=== PATIENT | male | born 1980 | race Caucasian/White ===

== ENCOUNTER 2017-09-01 22:51 | Inpatient (IN) | payer MEDICAID, OTHER ==
[~2017-09-01] VITALS: Ht 193 cm; Wt 132.5 kg
[~2017-09-01 22:51] MED LIST: ACETAMINOPHEN 500 MG CPLT PO PRN; ALLO300T2 PO; MEDR4PAK PO; NITROGLYCERIN 0.4 MG SL 25 TABS/BTL SL PRN; NORC5TAB PO; SODIUM CHLORIDE 0.9% FLUSH 10 ML FLUSH IV FLUSH PRN
[2017-09-01 23:15] VITALS: BP 156/97; PULSE 86; RESP 20; TEMP 98.8; O2SAT 96
[2017-09-01] MEDS ORDERED: NITROGLYCERIN/DEXTROSE 5% 250 ML for chest pain IV PRN (23:45)
[2017-09-01] MEDS ORDERED: NITROGLYCERIN-D5W 50 MG/250 ML 250 ML IV PRN (23:45)
--- NOTE | 2017-09-01 23:57 | HHI.HP ---
[facility] Primary [facility] Physician No Primary Care Physician Admission Diagnosis Diagnoses: Travel History International Travel<30 Days: No Contact w/Intl Traveler <30 Da: No Traveled to Known Affected Are: No History of Present Illness 37-year-old male presents to the emergency department with acute onset chest pain. The patient was seen in the [facility] emergency department yesterday for back pain for which she was given a Medrol Dosepak and [place]. He states that he went home and was lying down when the pain radiated from his back to his chest. He states the chest pain has remained persistent since yesterday and it feels like a crushing/stabbing pain in his mid sternum that radiates down both arms. The patient endorses previous shortness of breath, now resolved. Chest pain was not relieved by morphine in the emergency department. The patient has no cardiac history and has never had chest pain before. Patient's initial troponin was 0.14, repeat 0.55. Review of Systems Denies fever or chills Denies blurry vision, otorrhea, rhinorrhea Denies sore throat and cough Chest pain, positive shortness of breath No abdominal pain Denies constipation/diarrhea/nausea/vomiting Positive back pain No rashes Past Family Social History Past Medical History Gout Past Surgical History None Reported Medications Reported Meds & Active Scripts Active [place] (Hydrocodone-Acetaminophen) 5-325 mg Tab 1 Tab PO Q6H PRN Medrol Dosepak (Methylprednisolone) 4 Mg Dspk 4 Mg PO DIRECTED Per Pharmacist direction Reported Allopurinol 300 Mg Tab 300 Mg PO DAILY Allergies: Coded Allergies: No Known Allergies (Verified Allergy, Unknown, 09/01/17) Family History Mother with diabetes mellitus. Father with colon cancer. Social History Continues to smoke 2-3 cigarettes per day. Has a [id number] history of smoking. Quit alcohol 7 months ago. Denies illicit drugs. Physical Exam Physical Exam GENERAL: Obese male lying in bed SKIN: No rashes, ecchymoses or lesions. Cool and dry. HEAD: Atraumatic. Normocephalic. No temporal or scalp tenderness. EYES: Pupils equal round and reactive. Extraocular motions intact. No scleral icterus. No injection or drainage. ENT: Nose without bleeding, purulent drainage or septal hematoma. Throat without erythema, tonsillar hypertrophy or exudate. Uvula midline. Airway patent. NECK: Trachea midline. No JVD or lymphadenopathy. Supple, nontender, no meningeal signs. CARDIOVASCULAR: Regular rate and rhythm without murmurs, gallops, or rubs. RESPIRATORY: Clear to auscultation. Breath sounds equal bilaterally. No wheezes , rales, or rhonchi. GASTROINTESTINAL: Abdomen soft, non-tender, nondistended. No hepato-splenomegaly , or palpable masses. No guarding. MUSCULOSKELETAL: Extremities without clubbing, cyanosis, or edema. No joint tenderness, effusion, or edema noted. Middle of the upper drying machine back tender to palpation. NEUROLOGICAL: Awake and alert. Cranial nerves II through XII intact. Motor and sensory grossly within normal limits. Normal speech. Caprini VTE Risk Assessment Caprini VTE Risk Assessment: No/Low Risk (score <= 1) Caprini Risk Assessment Model Point Value = 1 Point Value = 2 Point Value = 3 Point Value = 5 Age 41-60 Minor surgery BMI > 25 kg/m2 Swollen legs Varicose veins or History of unexplained or recurrent spontaneous Oral contraceptives or hormone replacement Sepsis (< 1 month) Serious lung disease, including pneumonia (< 1 month) Abnormal pulmonary function Acute myocardial infarction Congestive heart failure (< 1 month) History of inflammatory bowel disease Medical patient at bed rest Age 61-74 Arthroscopic surgery Major open surgery (> 45 min) Laparoscopic surgery (> 45 min) Malignancy Confined to bed (> 72 hours) Immobilizing plaster cast Central venous access Age >= 75 History of VTE Family history of VTE Factor V Leiden Prothrombin [id number] Lupus anticoagulant Anticardiolipin antibodies Elevated serum homocysteine Heparin-induced thrombocytopenia Other congenital or acquired thrombophilia Stroke (< 1 month) Elective arthroplasty Hip, pelvis, or leg fracture Acute spinal cord injury (< 1 month) Prophylaxis Regimen Total Risk Factor Score Risk Level Prophylaxis Regimen 0-1 Low Early ambulation 2 Moderate Order ONE of the following: *Sequential Compression Device (SCD) *Heparin 5000 units SQ BID 3-4 Higher Order ONE of the following medications: *Heparin 5000 units SQ TID *Enoxaparin/Lovenox 40 mg SQ daily (WT < 150 kg, CrCl > 30 mL/min) *Enoxaparin/Lovenox 30 mg SQ daily (WT < 150 kg, CrCl > 10-29 mL/min) *Enoxaparin/Lovenox 30 mg SQ BID (WT < 150 kg, CrCl > 30 mL/min) AND/OR *Sequential Compression Device (SCD) 5 or more Highest Order ONE of the following medications: *Heparin 5000 units SQ TID (Preferred with Epidurals) *Enoxaparin/Lovenox 40 mg SQ daily (WT < 150 kg, CrCl > 30 mL/min) *Enoxaparin/Lovenox 30 mg SQ daily (WT < 150 kg, CrCl > 10-29 mL/min) *Enoxaparin/Lovenox 30 mg SQ BID (WT < 150 kg, CrCl > 30 mL/min) AND *Sequential Compression Device (SCD) Assessment and Plan Assessment and Plan 37-year-old male with a past medical history significant only for gout presents with a 1 day history of substernal chest pain and elevated troponins. 1. NSTEMI EKG without ST segment elevations or depressions, personally reviewed by me Elevated troponins of 0.14, 0.55 Heparin drip Nitro drip Discussed the case with Dr. Brambila who recommended continuing heparin drip and adding the nitro drip Cardiology consulted, appreciate assistance 2. Gout Continue allopurinol FEN Nothing by mouth after midnight NS 100 cc/hour Electrolytes: Monitor and replete when necessary Heparin drip Physician Certification 2 Midnight Certification Type: Admission for Inpatient Services Order for Inpatient Services The services are ordered in accordance with Medicare regulations or non- Medicare payer requirements, as applicable. In the case of services not specified as inpatient-only, they are appropriately provided as inpatient services in accordance with the 2-midnight benchmark. Estimated LOS (days): 2 2 days is the estimated time the patient will need to remain in the hospital, assuming treatment plan goals are met and no additional complications. Post-Hospital Plan: Not yet determined Katia Harris MD Sep 01, 2017 23:57
[2017-09-02] VITALS (19 sets, daily range): BP systolic 122–158; BP diastolic 74–101; PULSE 74–109; RESP 14–18; TEMP 97.4–99.9; O2SAT 93–98
[2017-09-02] MEDS: MORPHINE SULFATE 4 MG/ML INJ IV PUSH PRN ×2 (00:16→04:47)
[2017-09-02 03:29] LABS: CKMB 110.3 NG/ML (0.5-3.6)
[2017-09-02] MEDS ORDERED: LORazepam 2 MG/ML VIAL IV PUSH ONE (04:00)
[2017-09-02 07:23] LABS: APTT (PATIENT) 28.4 SEC (24.3-30.1)
--- NOTE | 2017-09-02 08:16 | EKG ---
Date Performed: 09/02/2017 Time Performed: 01:37:02 PTAGE: 37 years EKG: Sinus rhythm Anteroseptal infarct - age undetermined Low QRS voltages in precordial leads Abnormal ECG NO PREVIOUS TRACING DOCTOR: Eris Chavarria Interpretating Date/Time 09/02/2017 08:15:15
[2017-09-02] MEDS: SODIUM CHLORIDE 0.9% FLUSH 10 ML FLUSH IV FLUSH SCH ×2 (09:00→21:00)
--- NOTE | 2017-09-02 09:18 | PD.CONS ---
HPI Consult Requested By Primary Care Physician No Primary Care Physician History of Present Illness 37-year-old male smoker presents to the emergency department with acute onset chest pain, consulted to cardiology because of elevated troponin. He reports persistnet the chest pain since yesterday, crushing/stabbing pain in his mid sternum that radiates down both arms associated with shortness of breath, now resolved. Chest pain was not relieved by morphine in the emergency department. The patient has no cardiac history and has never had chest pain before. Review of Systems Consitutional: DENIES: Fatigue, Fever, Chills, Weight gain, Weight loss Eyes: DENIES: Amaurosis Fugax, Change in vision HEENT: DENIES: Lightheadedness, Change in hearing Respiratory: COMPLAINS OF: See HPI Cardiovascular: COMPLAINS OF: See HPI Gastrointestinal: DENIES: Nausea, Vomiting, Change in bowel habits, Reflux, Bloody stools, Melena Genitourinary: DENIES: Urinary incontinence, Difficulty voiding Integumentary: DENIES: Rash Neurologic: DENIES: Tingling or numbness, Memory problems, Poor Balance, Stroke symptoms Musculoskeletal: DENIES: Joint pain, Muscle pain, Limited range of motion, Back pain Psychiatric: DENIES: Anxiety, Depression, Sleep disturbances Hematologic: DENIES: Bruising tendencies, Bleeding tendencies Endocrine: DENIES: Weight gain, Weight loss, Thyroid disease Past Family Social History Allergies: Coded Allergies: No Known Allergies (Verified Allergy, Unknown, 09/01/17) Past Medical History Gout Past Surgical History None Reported Medications Reported Meds & Active Scripts Active [place] (Hydrocodone-Acetaminophen) 5-325 mg Tab 1 Tab PO Q6H PRN Medrol Dosepak (Methylprednisolone) 4 Mg Dspk 4 Mg PO DIRECTED Per Pharmacist direction Reported Allopurinol 300 Mg Tab 300 Mg PO DAILY Active Ordered Medications Current Medications Medications (Trade) Dose Ordered Sig/Reagan Route Start Time Stop Time Status Last Admin (NS Flush) 2 ml BID IV FLUSH 09/02/17 09:00 (NS Flush) 2 ml UNSCH PRN IV FLUSH 09/01/17 21:45 (Tylenol) 500 mg Q4H PRN PO 09/01/17 21:45 (Zyloprim) 300 mg DAILY PO 09/02/17 09:00 (Morphine Inj) 4 mg Q3H PRN IV PUSH 09/02/17 00:00 09/02/17 04:47 Sodium Chloride 1,000 ml @ 100 mls/hr Q10H IV 09/02/17 00:00 09/02/17 00:00 Nitroglycerin/ Dextrose 250 ml @ 1.5 mls/hr TITRATE PRN IV 09/01/17 23:45 09/02/17 01:18 Family History Mother with diabetes mellitus. Father with colon cancer. Social History Continues to smoke 2-3 cigarettes per day. Has a [id number] history of smoking. Quit alcohol 7 months ago. Denies illicit drugs. Physical Exam Vital Signs Vital Signs Date Time Temp Pulse Resp B/P (MAP) Pulse Ox O2 Delivery O2 Flow Rate FiO2 09/02/17 07:00 98.2 75 14 122/84 (97) 93 09/02/17 07:00 75 09/02/17 05:58 84 09/02/17 05:00 86 09/02/17 04:00 Room Air 09/02/17 04:00 98.9 88 18 126/75 (92) 97 09/02/17 04:00 88 09/02/17 03:00 90 09/02/17 02:00 86 09/02/17 01:18 88 154/93 09/02/17 01:00 99 09/02/17 00:00 86 09/01/17 23:15 86 09/01/17 23:15 98.8 86 20 156/97 (116) 96 Physical Exam GENERAL: Well-nourished, well-developed patient. SKIN: Warm and dry. HEAD: Normocephalic. EYES: No scleral icterus. No injection or drainage. NECK: Supple, trachea midline. No JVD or lymphadenopathy. CARDIOVASCULAR: Regular rate and rhythm without murmurs, gallops, or rubs. RESPIRATORY: Breath sounds equal bilaterally. No accessory muscle use. GASTROINTESTINAL: Abdomen soft, non-tender, nondistended. EXTREMITIES: No cyanosis, or edema. NEUROLOGICAL: Awake, alert, and oriented x 3. Non-focal. Laboratory Laboratory Tests Test 09/02/17 02:17 09/02/17 04:16 09/02/17 05:50 Total Creatine Kinase 901 Creatine Kinase MB 110.3 Creatine Kinase MB % 12.2 Troponin I 9.04 Urine Opiates Screen POS Urine Barbiturates Screen NEG Urine Amphetamines Screen NEG Urine Benzodiazepines Screen NEG Urine Cocaine Screen NEG Urine Cannabinoids Screen NEG Activated Partial Thromboplast Time 28.4 Assessment and Plan Problem List: (1) Elevated troponin ICD Codes: R74.8 - Abnormal levels of other serum enzymes Status: Acute Plan: 37 y/o M smoker presenting with chest pain found to have elevated troponin consisten with NSTEMI. EKG sinus rhythm with Q waves in anterior leads. Currently afebrile and hemodynamicalaly stable. Plan ASA, Heparin drip 2DEcho Schedule LHC +/- PCI today Keep NPO Risk benefits of LHC/PCI including but not limited to neurovascular trauma, bleeding, KENYA, stroke, emergent CABG and explain to patient. Mr. Ramírez understands risks and is willing to proceed. (2) Nonspecific chest pain ICD Codes: R07.9 - Chest pain, unspecified Status: Acute (3) Tobacco use disorder ICD Codes: F17.200 - Tobacco use disorder Status: Acute (4) Gout flare ICD Codes: M10.9 - Gout flare Status: Acute Casey Palma MD Sep 02, 2017 09:18
[2017-09-02] MEDS: ALLOPURINOL 300 MG TAB PO SCH (09:38)
[2017-09-02] MEDS: SODIUM CHLOR 0.9% 1000 ML INJ 1,000 ML IV SCH ×3 (10:00→16:52)
--- NOTE | 2017-09-02 12:22 | HHI.PR ---
Subjective Remarks Pt complains of chest pains, /, no nausea or vomiting. feels hungry and would like to be able to eat soon. States that he doesn't know at what time his cardiac cath is. still having back pain. Objective Vitals Vital Signs Date Time Temp Pulse Resp B/P (MAP) Pulse Ox O2 Delivery O2 Flow Rate FiO2 09/02/17 11:00 98.3 76 18 129/82 (98) 96 09/02/17 07:00 98.2 75 14 122/84 (97) 93 09/02/17 07:00 75 09/02/17 05:58 84 09/02/17 05:00 86 09/02/17 04:00 Room Air 09/02/17 04:00 98.9 88 18 126/75 (92) 97 09/02/17 04:00 88 09/02/17 03:00 90 09/02/17 02:00 86 09/02/17 01:18 88 154/93 09/02/17 01:00 99 09/02/17 00:00 86 09/01/17 23:15 86 09/01/17 23:15 98.8 86 20 156/97 (116) 96 I/O 09/01/17 09/01/17 09/01/17 09/02/17 09/02/17 09/02/17 07:00 15:00 23:00 07:00 15:00 23:00 Intake Total 960 ml Output Total 500 ml Balance 460 ml Intake Oral 480 ml IV Total 480 ml Output Urine Total 500 ml # Bowel Movements 0 Objective Remarks GENERAL: Obese male lying in bed EYES: Extraocular motions intact. ENT: Nose without drainage. Airway patent. NECK: Trachea midline. CARDIOVASCULAR: Regular rate and rhythm without murmurs RESPIRATORY: Clear to auscultation. Breath sounds equal bilaterally. No wheezes GASTROINTESTINAL: Abdomen soft, non-tender, nondistended. No guarding. MUSCULOSKELETAL: laying in his right side, able to move his lower extremities. A/P Assessment and Plan 37-year-old male with a past medical history significant only for gout presents with a 1 day history of substernal chest pain and elevated troponins. 1. NSTEMI EKG without ST segment elevations or depressions, personally reviewed by me Elevated troponins of 0.14, 0.55, 9.04 on Heparin drip/Nitro drip Cardiology following, Dr Olmos. Pt scheduled for cardiac cath today 2. Gout Continue allopurinol 3. Back pain CT thoracic and lumbar reviewed. norco and morphine prn. PT eval FEN NPO NS 100 cc/hour Electrolytes: Monitor and replete when necessary Heparin drip Discharge Planning cardiac cath today PT eval for back pain Xiao Liu MD Sep 02, 2017 12:22
[2017-09-02] MEDS ORDERED: ACETAMINOPHEN/HYDROcodone 325 MG/5 MG TAB PO PRN (12:30)
[2017-09-02] MEDS ORDERED: HEPARIN-NS/PF INJ 1,000 ML ONE (12:47)
[2017-09-02] MEDS ORDERED: MIDAZOLAM HCL 2 MG/2 ML VIAL ONE ×5 (12:48→14:44)
[2017-09-02] MEDS ORDERED: VERAPAMIL HCL 5 MG/2 ML VIAL ONE (12:59)
[2017-09-02] MEDS ORDERED: NITROGLYCERIN INJ 5 ML ONE (13:00)
[2017-09-02] MEDS ORDERED: HEPARIN SODIUM - IV 10,000 UNITS/10 ML VIAL ONE (13:00)
[2017-09-02] MEDS ORDERED: SODIUM NITROPRUSSIDE 50 MG/2 ML VIAL ONE (13:50)
[2017-09-02] MEDS ORDERED: TICAGRELOR 90 MG TAB PO ONE ×2 (14:25→15:15)
[2017-09-02] MEDS ORDERED: TIROFIBAN INFUSION INJ 250 ML IV ONE (14:56)
[2017-09-02] MEDS ORDERED: SODIUM CHLOR 0.9% 1000 ML INJ 1,000 ML IV SCH (15:03)
[2017-09-02] MEDS ORDERED: MISC INFORMATION XX ONE (15:15)
[2017-09-02] MEDS ORDERED: SODIUM CHLORIDE 0.9% FLUSH 10 ML FLUSH IV FLUSH PRN (15:15)
--- NOTE | 2017-09-02 15:22 | CATHPROC ---
[facility] HIS Report Study Information Study Number Admission Scheduled Start Study Start [id number] Sep 01 2017 10:53PM 09/02/2017 Sep 02 2017 12:35PM [place] [facility] Cardiac Catheterization Admit Source Facility Department Other [facility] - Insurance Customer Service Specialist Physician and Clinical Staff Initial MD Palma, Casey Cellular Biologist Myles Dumont,REMBERTO Recorder Yusef Leahy RCIS(BS) Scrub Nita Gan,RT(R) Procedures Performed Procedure Location (Site) Vessel Name Coronary Angiograms LCA Left Coronary Coronary Angiograms RCA Right Coronary Drug Eluting Inflatio LAD Mid Left Coronary Drug Eluting Inflatio LAD Prox Left Coronary L Heart Cath LV Gram-hand inj. LV LV Ventricle PTCA LAD Mid Left Coronary PTCA LAD Prox Left Coronary Wire insertion Radial (right) Radial Art. Equipment Time Fur Buyer Description Size Mfg Part Number Used/Scraped COPILOT VALVE, BLEEDBACK [id number] 13:16 [employer] Used CONTROL *[id number] 13:28 [employer] WIRE, DOC EXTENSION 145CM 145CM 72428 *[id number] Used TRANSDUCER, TRUWAVE [id number] 12:53 WALKER POE * Used W/STOCKCOCK *[id number] 534-518T *[id number] 534-521T *[id number] 12:53 Touch-Writer PACK, CCL CUSTOM * Used *[id number] 12:53 Touch-Writer SUPPORT, ARTERIAL ADULT 27808 *[id number] Used BALLOON, 1.25 X 6MM SPRINTER [id number] 13:28 MEDTRONIC 6MM Used LEGEND OTW *[id number] 13:27 [employer] BALLOON, 2.0 X 15MM EUPHORA 15MM Used *[id number] 13:48 [employer] BALLOON, 3.0 X 20MM EUPHORA 20MM Used *[id number] BALLOON, 4.0 X 20MM NC [id number] 14:04 MEDTRONIC 20MM Used EUPHORA *[id number] EXPORTAP 13:36 [employer]TR[employer]IC CATHETER, EXPORT ASPIRATON Used *[id number] EXPORTAP 14:12 MEDTRONIC CATHETER, EXPORT ASPIRATON Used *[id number] EXPORTAP 14:27 MEDTR[employer]IC CATHETER, EXPORT ASPIRATON Used *[id number] 13:56 MEDTR[employer]IC STENT, 3.5 26MM JESSICA 3.5 26MM [id number] Used 13:59 MEDTRONIC STENT, 3.5 38MM JESSICA 3.5 38MM [id number] Used 14:02 MEDTRONIC STENT, 3.5 38MM JESSICA 3.5 38MM [id number] Used [id number] 13:15 [employer]IC/AVE EBU 3.5 Z2 GUIDE CATHETER FR 6 Used *5623013 [id number] 13:44 [place]berry 30 REUBEN INDEFLATOR Used *[id number] BAND, RADIAL COMPRESSION TR [id number] 14:48 [employer] 29CM Used LARGE 29 *[id number] [id number] 12:53 [employer] WIRE, 3MMJ .035 180CM 180CM Used *[id number] [id number] 12:53 NAMIC MANIFOLD, 4 PORT * Used *9174125 12:53 [employer] OMNIPAQUE, 350 MG, 150ML 150ML [id number] Used CATHETER, FR4 SPIROFLEX [id number] 14:36 [employer] FR 4 Used ANGIOJET RX *9331733 [id number] 12:53 [facility] BLANKET,WARM AIR CCL * Used *[id number] SHEATH, FR6 TRANSRADIAL RM*[id number] 12:53 [employer] FR 6 Used SLENDER 10CM *[id number] WIRE, RUNTHROUGH NS FLOPPY 25-1011 13:16 [employer] 180CM Used .014 180CM *[id number] WIRE, RUNTHROUGH NS FLOPPY 25-1011 14:08 [employer] 180CM Used .014 180CM *[id number] PRONTO EXTRACTION CATHETER 14:15 VASCULAR [employer]UTIONS * 5003 *[id number] Used V3 Equipment Model, Serial, Lot Number and Expiration Data Description Model Number Serial Number Lot Number Expiration Date BALLOON, 4.0 X 20MM NE [id number] 09-06-2018 EUPHORA CATHETER, EXPORT ASPIRATON [id number] 01-22-2019 CATHETER, EXPORT ASPIRATON [id number] 05-24-2019 CATHETER, FR4 SPIROFLEX [id number] 01-25-2019 ANGIOJET RX History: Allergies Allergy Reaction No Known Allergies History: Risk Factors Family History of Hypertension Dyslipidemia Previous NH Previous Heart Failure Premature CAD No No No No No Prior Valve Prior PCI Prior CABG Surgery No No No Cerebrovascular Peripheral Artery Chronic Lung On Dialysis Diabetes Disease Disease Disease No No No No No History: Symptoms/Diagnosis Selection Items Angina-unstable History: Stress Tests Stress or Imaging Studies Performed No History: Other Current Smoker Method Quit Packs a Day Years Used Pack Years No Cigarettes 2 Years Ago 1 10 10 Labs Hgb (g/dl) Hct (%) WBC (l/cumm) Platelets (thousands) 11.60-17.00 35.00-51.00 4.00-11.00 150.00-450.00 15.9 46.5 17.8 312 Glucose (mg/dl) BUN (mg/dl) Creatinine (mg/dl) BUN:Creatinine (1:x) 74.00-106.00 7.00-18.00 0.50-1.30 10.00-20.00 198 20 1.2 16.7 Na (meq/l) K (meq/l) 136.00-145.00 3.50-5.10 138 4.3 INR (PTT:PT) 0.90-1.10 1 Troponin I (ng/ml) CPK-MB (ng/ML) 0.02-0.05 0.50-3.60 9.04 Not Drawn Medication Medication Total Dose (Bolus/Oral) Medication Total Dosage/Unit 1% XYLOCAINE 20 mL AGGRASTAT BOLUS 66.8 mL BRILINTA 180 mg FENTANYL 225 mcg HEPARIN 7000 units RADIAL COCKTAIL 5 mL (Bolus) VERSED 9 mg Medications (Bolus/Oral) Medication Time Given Dosage/Unit Administered By Reason VERSED 09/02/2017 1:04:48 PM 1 mg Nickolas-Casey Leroy Patient arrived on 1 mg VERSED given by Casey Palma in Left Antecubital via Peripheral IV. Orde red by Casey Palma. FENTANYL 09/02/2017 1:04:49 PM 50 mcg Myles Dumont 50 mcg FENTANYL given in lab by Myles Dumont, RN in Left Antecubital via Peripheral IV. Ordered by Casey Palma. 1% XYLOCAINE 09/02/2017 1:05:37 PM 20 mL Casey Palma 20 mL 1% XYLOCAINE given in lab by Casey Palma in Right Radial via Subcutaneous. Ordered by Casey Arboleda. Ntg 200mcg Verapamil 2.5mg Heparin RADIAL COCKTAIL 09/02/2017 1:06:15 PM 5 mL (Bolus) Casey Palma 2500U 5 mL (Bolus) RADIAL COCKTAIL given in lab by Casey Palma in Right Radial via Radial. Using [Lupe ution Name]. Ordered by Casey Palma. Reason: Ntg 200mcg Verapamil 2.5mg Heparin 2500U. HEPARIN 09/02/2017 1:17:22 PM 5000 units Casey Palma 5000 units HEPARIN given in lab by Casey Palma in Left Antecubital via Peripheral IV. Ordered b y Casey Palma. VERSED 09/02/2017 1:21:36 PM 1 mg Myles Dumont 1 mg VERSED given in lab by Myles Dumont RN in Left Antecubital via Peripheral IV. Ordered by Casey Espino. FENTANYL 09/02/2017 1:21:37 PM 25 mcg Myles Dumont 25 mcg FENTANYL given in lab by Myles Dumont RN in Left Antecubital via Peripheral IV. Ordered by Casey Palma. VERSED 09/02/2017 1:31:11 PM 1 mg Myles Dumont 1 mg VERSED given in lab by Mylse Dumont RN in Left Antecubital via Peripheral IV. Ordered by Casey Espino. VERSED 09/02/2017 1:48:00 PM 1 mg Myles Dumont 1 mg VERSED given in lab by Myles Dumont RN in Left Antecubital via Peripheral IV. Ordered by Casey Espino. HEPARIN 09/02/2017 2:06:00 PM 2000 units Myles Dumont 2000 units HEPARIN given in lab by Myles Dumont RN in Left Antecubital via Peripheral IV. Ordered by Casey Palma. BRILINTA 09/02/2017 2:10:00 PM 180 mg Myles Dumont 180 mg BRILINTA given in lab by Myles Dumont RN via Oral. Ordered by Casey Palma. FENTANYL 09/02/2017 2:10:01 PM 50 mcg Ferlitto, Myles 50 mcg FENTANYL given in lab by Myles Dumont RN in Left Antecubital via Peripheral IV. Ordered by Casey Palma. VERSED 09/02/2017 2:10:18 PM 1 mg Ferlitto, Myles 1 mg VERSED given in lab by Myles Dumont RN in Left Antecubital via Peripheral IV. Ordered by Casey Espino. VERSED 09/02/2017 2:15:49 PM 1 mg Ferlitto, Myles 1 mg VERSED given in lab by Myles Dumont RN in Left Antecubital via Peripheral IV. Ordered by Casey Espino. VERSED 09/02/2017 2:22:12 PM 1 mg Ferlitto, Myles 1 mg VERSED given in lab by Myles Dumont RN in Left Antecubital via Peripheral IV. Ordered by Casey Espino. FENTANYL 09/02/2017 2:22:17 PM 50 mcg Ferlitto, Myles 50 mcg FENTANYL given in lab by Myles Dumont RN in Left Antecubital via Peripheral IV. Ordered by Casey Palma. VERSED 09/02/2017 2:45:31 PM 2 mg Ferlitto, Myles 2 mg VERSED given in lab by Myles Dumont RN in Left Antecubital via Peripheral IV. Ordered by Casey Espino. FENTANYL 09/02/2017 2:45:35 PM 25 mcg FerlittoMyles 25 mcg FENTANYL given in lab by Myles Dumont RN in Left Antecubital via Peripheral IV. Ordered by Casey Palma. FENTANYL 09/02/2017 2:51:00 PM 25 mcg Ferdeondreo, Myles 25 mcg FENTANYL given in lab by Myles Dumont RN in Left Antecubital via Peripheral IV. Ordered by Casey Palma. AGGRASTAT BOLUS 09/02/2017 2:59:00 PM 66.8 mL Myles Dumont 66.8 mL AGGRASTAT BOLUS given in lab by Ferlitto, Myles, RN in Left Antecubital via Peripheral IV. Ord ered by Casey Palma. Medication (Drip) Medication Time Given Dosage/Unit Concentration/Unit Diluent (ml) Solution AGGRASTAT DRIP 09/02/2017 2:59:00 PM 0.15 mcg/kg/min 12.5 mg 250 NaCl .9 0.15 mcg/kg/min AGGRASTAT DRIP given in lab by Myles Dumont RN in Left Antecubital via Peripheral IV. Pump/Drip Flow = 24.03 ml/hr using NaCl .9 with a concentration of 12.5 mg in 250 ml. Ordered by Casey Palma. IV Solutions 09/02/2017 12:44:44 PM 50 mL (IV) NaCl .9 Patient arrived on IV Solutions via Peripheral IV. Pump/Drip Flow using NaCl .9. NIPRIDE 09/02/2017 1:53:53 PM 50 mcg 50 mcg NIPRIDE given in lab by Casey Palma via Intra-coronary. Ordered by Casey Palma. NIPRIDE 09/02/2017 2:00:05 PM 50 mcg 50 mcg NIPRIDE given in lab by Casey Palma via Intra-coronary. Ordered by Casey Palma. NIPRIDE 09/02/2017 2:05:52 PM 50 mcg 50 mcg NIPRIDE given in lab by Casey Palma via Intra-coronary. Ordered by Casey Palma. Initial Case Assessment Cardiovascular HR Rhythm NIBP Chest Pain 72 SR 140/88 0 Edema Present Skin color Skin None Normal Warm Dry Circulatory - Right Pulses Dorsalis Pedis Femoral Radial 3 3 3 Scale (0,1,2,3,4,d) Circulatory - Left Pulses Dorsalis Pedis Femoral Radial 3 3 3 Scale (0,1,2,3,4,d) Circulatory - Lower Extremities Color Lower Right Color Lower Left Normal Normal Neurological State Oriented to time-place- Alert Moves all extremities person Respiration - General Respiration Rate SpO2 (%) (B/min) 19 96 Final Case Assessment Cardiovascular HR Rhythm NIBP Chest Pain 72 SR 140/88 0 Edema Present Skin color Skin None Normal Warm Dry Circulatory - Right Pulses Dorsalis Pedis Femoral Radial 3 3 3 Scale (0,1,2,3,4,d) Circulatory - Left Pulses Dorsalis Pedis Femoral Radial 3 3 3 Scale (0,1,2,3,4,d) Circulatory - Lower Extremities Color Lower Right Color Lower Left Normal Normal Neurological State Oriented to time-place- Alert Moves all extremities person Respiration - General Respiration Rate SpO2 (%) (B/min) 19 96 Chronological Log Time Study Chronological Log 12:35:13 Patient arrived via Bed. 12:35:14 Patient Name, D.O.B, / Armband Verified By R.N. 12:35:20 Consent signed by the physician and the patient and verified by the Insurance Customer Service Specialist staff. 12:40:04 Verbal Stimulation=2 Physical Stimulation=2 Airway=2 Respiration=2 TOTAL=8. (0=absent, 1=li mited, 2=present) Vitals capture started with the following parameters, Patient=Adult, Interval=5 min, Initial Pr agxkpv=969 mmHg, 12:40:52 Deflation Rate=5 mmHg, Cuff placed on Right Arm 12:41:54 HR=69 bpm, NJAL=389/88 mmhg, Resp=13 B/min, Pain=0, Willy=10, Gann=2 12:44:16 Allens test performed on the left radial and ulnar artery. 12:44:22 Patient has been NPO for More than 6Hrs. 12:44:29 A # 20 IV was noted in the Antecubital (left). Grade = 0 12:44:44 Patient arrived on IV Solutions via Peripheral IV. Pump/Drip Flow using NaCl .9. 12:45:07 History and physical on the chart or being dictated. Assessment: Initial Case, HR=72 BPM, Rhythm=SR, ESAA=603/88 mmhg, Chest Pain=0, Edema=None, Col or=Normal, Skin = Warm, Dry Right Pulses: Ozzy Ped=3, Femoral=3, Radial=3 Left Pulses: Ozzy Ped=3, Femoral=3, Radial=3 12:45:12 Lower Right Extremities: Color=Normal Lower Left Extremities: Color=Normal Neurological: State=Alert, Ox3, MAC Respiration: Resp=19 B/min, SpO2=96 % 12:46:51 HR=59 bpm, BFON=375/89 mmhg, SpO2=93.0 %, Resp=9 B/min, Pain=0, Willy=10, Gann=2 12:51:19 HR=83 bpm, KPTL=846/95 mmhg, SpO2=94 %, Resp=14 B/min, Pain=0, Willy=10, Gann=2 12:54:50 Right Radial and groin(s) prepped with 2% chlorhexidine, and draped after a 3 min. waiting time. 12:55:00 MD paged 12:55:12 Pressure channel 1 zeroed. 12:55:40 Reference ECG taken 12:56:23 HR=46 bpm, PYMC=848/93 mmhg, Resp=15 B/min, Pain=0, Willy=10, Gann=2 13:01:22 HR=0 bpm, EKFU=683/96 mmhg, SpO2=96.0 %, Resp=8 B/min, Pain=0, Willy=10, Gann=2 13:04:43 MD arrived. Time Out. Correct patient, correct procedure, correct physician, power injector loaded, or not loaded with contrast with 13:04:47 surgical team present. Time Out Concurred by MD and individual staff in procedure. 13:04:48 Case Start Patient arrived on 1 mg VERSED given by Casey Palma in Left Antecubital via Peripheral IV . Ordered by Randy 13:04:48 Casey Leroy. 13:04:49 50 mcg FENTANYL given in lab by Myles Dumont RN in Left Antecubital via Peripheral IV. O rdered by Casey Palma. 20 mL 1% XYLOCAINE given in lab by Casey Palma in Right Radial via Subcutaneous. Ordered by Minerva 13:05:37 Casey. 13:05:41 Access site was RIGHT Radial Artery. A SHEATH, FR6 TRANSRADIAL SLENDER 10CM FR 6 was advanced into the Radial (right) using the Perc utaneous 13:05:52 technique. 5 mL (Bolus) RADIAL COCKTAIL given in lab by Casey Palma in Right Radial via Radial. Usin g [Solution Name]. 13:06:15 Ordered by Casey Palma. Reason: Ntg 200mcg Verapamil 2.5mg Heparin 2500U. 13:06:25 HR=0 bpm, QQJG=205/89 mmhg, Resp=19 B/min, Pain=0, Willy=10, Gann=2 A JR 4.0 INFINITI CATHETER FR 5 was advanced over a wire. OMNIPAQUE, 350 MG, 150ML 150ML was us ed for 13:06:25 injections. Recorded Pressure: LV, HR=89, Condition=Condition 1 13:07:42 (Left Ventricle) LV 114/11/24 Recorded Pressure: LV, VZ=032, Condition=Condition 1 13:08:09 (Left Ventricle) LV 107/19/34 13:09:01 The LV was manually injected with 8 cc's and visualized. OMNIPAQUE, 350 MG, 150ML 150ML use d. Recorded Pressure: LV, Ao, HR=98, Condition=Condition 1 13:09:09 (Left Ventricle) LV 96/4/11, (Aorta) Ao 113/76/95 13:11:26 HR=12 bpm, MHZG=875/94 mmhg, Resp=21 B/min, Pain=0, Willy=10, Gann=2 13:12:34 The RCA was injected and visualized at various angles. OMNIPAQUE, 350 MG, 150ML 150ML used . After removing the current catheter a JL 3.5 INFINITI CATHETER FR 5 was advanced over a WIRE, 3 MMJ .035 180CM 13:12:42 180CM. Recorded Pressure: Ao, HR=91, Condition=Condition 1 13:14:14 (Aorta) Ao 111/83/97 13:14:31 The LCA was injected and visualized at various angles. OMNIPAQUE, 350 MG, 150ML 150ML used . 13:16:25 HR=5 bpm, QHPT=101/92 mmhg, Resp=11 B/min, Pain=0, Willy=10, Gann=2 5000 units HEPARIN given in lab by Casey Palma in Left Antecubital via Peripheral IV. Ord ered by Minerva, 13:17:22 Casey. After removing the current catheter a EBU 3.5 Z2 GUIDE CATHETER FR 6 was advanced over a WIRE, 3MMJ .035 13:17:35 180CM 180CM. 13:19:46 Ventricular Tachycardia noted. 13:19:57 Patient defibrillated at 260 joules. The ECG rhythm was noted as VT. 13:21:36 1 mg VERSED given in lab by Myles Dumont, REMBERTO in Left Antecubital via Peripheral IV. Order ed by Casey Palma. 13:21:37 25 mcg FENTANYL given in lab by Myles Dumont, REMBERTO in Left Antecubital via Peripheral IV. O rdered by Casey Palma. 13:21:59 HR=32 bpm, XPHC=984/96 mmhg, SpO2=95.0 %, Resp=15 B/min, Pain=0, Willy=10, Gann=2 13:24:47 A WIRE, RUNTHROUGH NS FLOPPY .014 180CM 180CM was inserted via Radial (right). 13:24:53 Interventional wire has crossed the lesion A BALLOON, 1.25 X 6MM SPRINTER LEGEND OTW 6MM was inserted over WIRE, RUNTHROUGH NS FLOPPY .014 13:25:37 180CM 180CM via the Radial (right). 13:26:23 HR=38 bpm, YFBR=279/95 mmhg, Resp=16 B/min, Pain=0, Willy=10, Gann=2 13:29:52 Wire removed 13:31:11 1 mg VERSED given in lab by Myles Dumont, REMBERTO in Left Antecubital via Peripheral IV. Order ed by Casey Palma. 13:31:28 HR=0 bpm, UBLW=092/96 mmhg, SpO2=94.0 %, Resp=13 B/min, Pain=0, Willy=10, Gann=2 13:32:23 Reference ECG taken Recorded Pressure: Ao, HR=82, Condition=Condition 1 13:33:46 (Aorta) Ao 99/75/87 13:36:23 HR=1 bpm, WKUI=083/96 mmhg, SpO2=95.0 %, Resp=16 B/min, Pain=0, Willy=10, Gann=2 13:36:45 Balloon Removed. 13:37:11 Aspiration catheter inserted A CATHETER, EXPORT ASPIRATON was advanced over a wire. OMNIPAQUE, 350 MG, 150ML 150ML was used for 13:37:50 injections. 13:40:48 Aspiration in progress 13:41:26 HR=0 bpm, DTRN=307/96 mmhg, Resp=16 B/min, Pain=0, Willy=10, Gann=2 13:43:23 Catheter was removed A BALLOON, 2.0 X 15MM EUPHORA 15MM was inserted over WIRE, RUNTHROUGH NS FLOPPY .014 180CM 180C M via 13:43:40 the Radial (right). A BALLOON, 2.0 X 15MM EUPHORA 15MM over a WIRE, RUNTHROUGH NS FLOPPY .014 180CM 180CM in the LA D Mid 13:43:53 was inflated using a 30 REUBEN INDEFLATOR at 10 reuben for 14 sec. A BALLOON, 2.0 X 15MM EUPHORA 15MM over a WIRE, RUNTHROUGH NS FLOPPY .014 180CM 180CM in the LA D Mid 13:45:10 was inflated using a 30 REUBEN INDEFLATOR at 10 reuben for 10 sec. A BALLOON, 2.0 X 15MM EUPHORA 15MM over a WIRE, RUNTHROUGH NS FLOPPY .014 180CM 180CM in the LA D Mid 13:45:24 was inflated using a 30 REUBEN INDEFLATOR at 10 reuben for 10 sec. 13:46:27 HR=80 bpm, YWMB=111/93 mmhg, Resp=17 B/min, Pain=0, Willy=10, Gann=2 A BALLOON, 2.0 X 15MM EUPHORA 15MM over a WIRE, RUNTHROUGH NS FLOPPY .014 180CM 180CM in the LA D Mid 13:46:56 was inflated using a 30 REUBEN INDEFLATOR at 10 reuben for 10 sec. 13:47:27 Balloon Removed. 13:48:00 1 mg VERSED given in lab by Myles Dumont, RN in Left Antecubital via Peripheral IV. Order ed by Casey Palma. A BALLOON, 3.0 X 20MM EUPHORA 20MM was inserted over WIRE, RUNTHROUGH NS FLOPPY .014 180CM 180C M via 13:49:25 the Radial (right). A BALLOON, 3.0 X 20MM EUPHORA 20MM over a WIRE, RUNTHROUGH NS FLOPPY .014 180CM 180CM in the LA D Mid 13:49:35 was inflated using a 30 REUBEN INDEFLATOR at 10 reuben for 10 sec. A BALLOON, 3.0 X 20MM EUPHORA 20MM over a WIRE, RUNTHROUGH NS FLOPPY .014 180CM 180CM in the LA D Mid 13:50:13 was inflated using a 30 REUBEN INDEFLATOR at 12 reuben for 10 sec. 13:51:59 HR=0 bpm, GYPC=424/103 mmhg, PlI7=434.0 %, Resp=17 B/min, Pain=0, Willy=10, Gann=2 13:53:29 Activated Clotting Time Drawn 13:53:53 50 mcg NIPRIDE given in lab by Casey Palma via Intra-coronary. Ordered by Casey Palma. A STENT, 3.5 26MM JESSICA 3.5 26MM was advanced through a EBU 3.5 Z2 GUIDE CATHETER FR 6 over a WI RE, 13:55:00 RUNTHROUGH NS FLOPPY .014 180CM 180CM. 13:56:27 HR=0 bpm, NKGR=373/99 mmhg, Resp=17 B/min, Pain=0, Willy=10, Gann=2 A STENT, 3.5 26MM JESSICA 3.5 26MM was deployed using a 30 REUBEN INDEFLATOR at 12 atmospheres for 12 seconds in 13:56:38 the LAD Mid. 13:57:07 Delivery device removed A STENT, 3.5 38MM JESSICA 3.5 38MM was advanced through a EBU 3.5 Z2 GUIDE CATHETER FR 6 over a WI RE, 13:58:18 RUNTHROUGH NS FLOPPY .014 180CM 180CM. A STENT, 3.5 38MM JESSICA 3.5 38MM was deployed using a 30 REUBEN INDEFLATOR at 12 atmospheres for 15 seconds in 13:59:10 the LAD Mid. 14:00:01 Delivery device removed 14:00:05 50 mcg NIPRIDE given in lab by Casey Palma via Intra-coronary. Ordered by Casey Palma. 14:01:30 HR=0 bpm, JXWJ=862/101 mmhg, DrK7=324.0 %, Resp=15 B/min, Pain=0, Willy=10, Gann=2 A STENT, 3.5 38MM JESSICA 3.5 38MM was advanced through a EBU 3.5 Z2 GUIDE CATHETER FR 6 over a WI RE, 14:02:27 RUNTHROUGH NS FLOPPY .014 180CM 180CM. A STENT, 3.5 38MM JESSICA 3.5 38MM was deployed using a 30 REUBEN INDEFLATOR at 16 atmospheres for 15 seconds in 14:02:36 the LAD Prox. 14:05:24 Delivery device removed 14:05:52 50 mcg NIPRIDE given in lab by Casey Palma via Intra-coronary. Ordered by Casey Palma. 2000 units HEPARIN given in lab by Myles Dumont, REMBERTO in Left Antecubital via Peripheral IV. Or dered by Minerva, 14:06:00 Casey. 14:06:29 HR=0 bpm, TQRC=002/98 mmhg, Resp=21 B/min, Pain=0, Willy=10, Gann=2 14:08:47 A WIRE, RUNTHROUGH NS FLOPPY .014 180CM 180CM was inserted via Radial (right). 14:10:00 180 mg BRILINTA given in lab by Myles Dumont, REMBERTO via Oral. Ordered by Casey Palma. 14:10:01 50 mcg FENTANYL given in lab by Myles Dumont RN in Left Antecubital via Peripheral IV. O rdered by Casey Palma. 14:10:18 1 mg VERSED given in lab by Myles Dumont, REMBERTO in Left Antecubital via Peripheral IV. Order ed by Casey Palma. 14:10:43 Aspiration catheter inserted A CATHETER, EXPORT ASPIRATON was advanced over a wire. OMNIPAQUE, 350 MG, 150ML 150ML was used for 14:10:54 injections. 14:11:00 Aspiration in progress 14:11:28 HR=0 bpm, UOXI=472/100 mmhg, SpO2=99.0 %, Resp=18 B/min, Pain=0, Willy=10, Gann=2 14::49 Catheter was removed 14:13:18 Aspiration catheter inserted A CATHETER, EXPORT ASPIRATON was advanced over a wire. OMNIPAQUE, 350 MG, 150ML 150ML was used for 14:13:25 injections. 14:15:30 Catheter was removed 14:15:49 1 mg VERSED given in lab by Myles Dumont, RN in Left Antecubital via Peripheral IV. Order ed by Casey Palma. 14:16:05 Aspiration catheter inserted A PRONTO EXTRACTION CATHETER V3 * was advanced over a wire. OMNIPAQUE, 350 MG, 150ML 150ML was used for 14:16:08 injections. 14:16:30 Aspiration in progress 14:16:32 HR=0 bpm, IDYW=483/104 mmhg, SpO2=94.0 %, Resp=15 B/min, Pain=0, Willy=10, Gann=2 14:17:39 Catheter was removed A BALLOON, 4.0 X 20MM NC EUPHORA 20MM was inserted over WIRE, RUNTHROUGH NS FLOPPY .014 180CM 1 80CM 14:17:47 via the Radial (right). A BALLOON, 4.0 X 20MM NC EUPHORA 20MM over a WIRE, RUNTHROUGH NS FLOPPY .014 180CM 180CM in the LAD 14:18:07 Mid was inflated using a 30 REUBEN INDEFLATOR at 8 reuben for 8 sec. A BALLOON, 4.0 X 20MM NC EUPHORA 20MM over a WIRE, RUNTHROUGH NS FLOPPY .014 180CM 180CM in the LAD 14:18:34 Mid was inflated using a 30 REUBEN INDEFLATOR at 10 reuben for 8 sec. A BALLOON, 4.0 X 20MM NC EUPHORA 20MM over a WIRE, RUNTHROUGH NS FLOPPY .014 180CM 180CM in the LAD 14:18:50 Mid was inflated using a 30 REUBEN INDEFLATOR at 10 reuben for 8 sec. A BALLOON, 4.0 X 20MM NC EUPHORA 20MM over a WIRE, RUNTHROUGH NS FLOPPY .014 180CM 180CM in the LAD 14:19:16 Mid was inflated using a 30 REUBEN INDEFLATOR at 12 reuben for 10 sec. A BALLOON, 4.0 X 20MM NC EUPHORA 20MM over a WIRE, RUNTHROUGH NS FLOPPY .014 180CM 180CM in the LAD 14:19:46 Prox was inflated using a 30 REUBEN INDEFLATOR at 12 reuben for 10 sec. 14:21: Balloon Removed. 14:21:31 HR=0 bpm, NIKS=971/107 mmhg, SpO2=98.0 %, Resp=14 B/min, Pain=0, Willy=10, Gann=2 14:21:45 Wire removed 14:22:12 1 mg VERSED given in lab by Myles Dumont RN in Left Antecubital via Peripheral IV. Order ed by Casey Palma. 14:22:17 50 mcg FENTANYL given in lab by Myles Dumont RN in Left Antecubital via Peripheral IV. O rdered by Casey Palma. 14:22:59 Aspiration catheter inserted A PRONTO EXTRACTION CATHETER V3 * was advanced over a wire. OMNIPAQUE, 350 MG, 150ML 150ML was used for 14:23:09 injections. 14:23:52 Aspiration in progress 14:24:00 Catheter was removed Recorded Pressure: Ao, KP=775, Condition=Condition 1 14:24:32 (Aorta) Ao 119/90/104 14:26:34 HR=0 bpm, EBZE=154/116 mmhg, SpO2=95.0 %, Resp=14 B/min, Pain=0, Willy=10, Gann=2 14:28:22 ACT (Normal Range 90-180) = 317 14:30:21 Aspiration catheter inserted A CATHETER, EXPORT ASPIRATON was advanced over a wire. OMNIPAQUE, 350 MG, 150ML 150ML was used for 14:30:22 injections. 14:31:06 Aspiration in progress 14:31:33 HR=0 bpm, WXQS=096/109 mmhg, SpO2=94.0 %, Resp=13 B/min, Pain=0, Willy=10, Gann=2 14:32:43 Catheter was removed 14:36:34 HR=0 bpm, RDOT=214/106 mmhg, SpO2=99.0 %, Resp=13 B/min, Pain=0, Willy=10, Gann=2 14:37:40 Aspiration (4fr Angiojet spiroflex) catheter inserted 14:38:00 Aspiration in progress. 10 seconds. Circumflex. 14:39:36 Aspiration in progress. 10 seconds. Circumflex. 14:41:35 HR=0 bpm, RNWU=769/108 mmhg, QhJ2=881.0 %, Resp=12 B/min, Pain=0, Willy=10, Gann=2 14:42:10 Aspiration in progress. 10 seconds. Circumflex. 14:44:08 Aspiration in progress. 10 seconds. Circumflex. 14:45:31 2 mg VERSED given in lab by Myles Dumont, REMBERTO in Left Antecubital via Peripheral IV. Order ed by Casey Palma. 14:45:35 25 mcg FENTANYL given in lab by Myles Dumont RN in Left Antecubital via Peripheral IV. O rdered by Casey Palma. 14:46:28 Angiojet Catheter was removed 14:46:36 HR=0 bpm, CELV=212/114 mmhg, SpO2=98.0 %, Resp=16 B/min, Pain=0, Willy=10, Gann=2 14:47:01 Wire removed 14:47:10 Catheter was removed 14:47:20 Case End 14:51:00 25 mcg FENTANYL given in lab by Myles Dumont, REMBERTO in Left Antecubital via Peripheral IV. O rdered by Casey Palma. 14:51:37 HR=18 bpm, LPJH=549/118 mmhg, SpO2=99.0 %, Resp=12 B/min, Pain=0, Willy=10, Gann=2 Assessment: Final Case, HR=72 BPM, Rhythm=SR, TGEK=460/88 mmhg, Chest Pain=0, Edema=None, [place] r=Normal, Skin = Warm, Dry Right Pulses: Ozzy Ped=3, Femoral=3, Radial=3 Left Pulses: Ozzy Ped=3, Femoral=3, Radial=3 14:51:41 Lower Right Extremities: Color=Normal Lower Left Extremities: Color=Normal Neurological: State=Alert, Ox3, MAC Respiration: Resp=19 B/min, SpO2=96 % Radial Compression Device Used. 9 mLs of air placed in BAND, RADIAL COMPRESSION TR LARGE 29 29 CM. Affected 14:52:54 hand 100 % O2 saturation. 14:53:16 Sterile dressing applied to site 14:53:17 No case complications noted. 14:53:18 Cine recording checked. 14:56:38 HR=23 bpm, QBXW=487/97 mmhg, Resp=13 B/min, Pain=0, Willy=10, Gann=2 66.8 mL AGGRASTAT BOLUS given in lab by Myles Dumont, RN in Left Antecubital via Peripheral IV. Ordered by Randy 14:59:00 Casey Leroy. 0.15 mcg/kg/min AGGRASTAT DRIP given in lab by Myles Dumont, RN in Left Antecubital via Aline pheral IV. Pump/Drip 14:59:00 Flow = 24.03 ml/hr using NaCl .9 with a concentration of 12.5 mg in 250 ml. Ordered by Casey Goodson. 15:05:12 Bedside Report will be given. 15:05:13 Implantable Device card placed in patient's chart. 15:05:14 Contrast Scanned 15:05:19 A Left Heart Cath was performed. 15:05:20 Patient moved to [facility] End Study - Contrast Media Used In Study Contrast Total Opened (mL) Total Used (mL) Total Wasted (mL) Omnipaque 250 250 0 End Study - Maximum Contrast Load Max Contrast Load (mL) 556.3 End Study - Radiation Exposure Fluoro Time (minutes) 33.6 End Study - Patient Disposition Complications Transferred To Interventional Outcome No Telemetry Bed successful
--- NOTE | 2017-09-02 15:49 | MA ---
cc: ALEKREGINALDO DATE: September 02, 2017 DATE OF : 1980 PROCEDURE PERFORMED 1. Left heart catheterization. 2. Selective right and left coronary angiography. 3. Left ventriculogram. 4. Successful PCI to mid and proximal LAD. 5. Successful Angio-Jet to the left circumflex artery. INDICATION [id number] HI. DESCRIPTION OF PROCEDURE Consent was signed. The patient was prepped and draped in sterile fashion. Using 1% lidocaine for local anesthesia, the micropuncture kit, a 6-Ind[place]ian sheath was inserted into the right radial artery. Antispasmodic cocktail was given, then selective right and left coronary angiography was performed with a JR-4 and a JL-3.5 diagnostic catheters. Angiography was taken in multiple views. The JR diagnostic catheter was introduced over the wire to the ventricle. This was followed by pressure recordings, left ventriculogram on pullback. We identified a complete occlusion of the LAD from its ostium which explained the patient's symptoms on presentation for which we prepared to fix. For this an EBU 3-5 was used to engage the left main. IV heparin was used for anticoagulation. The LAD vessel was wired with a run-through wire which was anchored distally in the LAD, we confirmed the distal position of the wire with an over the wire balloon and selective angiography through the balloon to the distal LAD. Then we prepared to pre-dilate with a 2.5 12 balloon followed by a 3-0 balloon. Then we inserted and deployed 3-5 drug-eluting stent from the midportion of the LAD into the proximal LAD. Stents were a 3.5 38, 3.5 26 at 3.5 38. The stents were post deployed with a noncompliant 4-0 20 balloon. Final angiographic views revealed good stent position and expansion with PJ-III flow. We had some clot dislodgement into the left circumflex artery. The patient remained asymptomatic during this point. We inserted aspiration catheter which still pbut it was not enought to suction out the clot for which we then inserted an Angio-Jet device successfully clearing the vessel of the clot. The patient tolerated the procedure well without complications. Estimated blood loss was less than 30 ccs. Total contrast 250 ccs. The patient's access site was closed with a TR band. The patient was loaded with aspirin and Brilinta after the procedure and he was also started on Aggrastat drip. PROCEDURE RESULTS LEFT VENTRICLE The left ventricular pressure was 96/4 with an LVEDP of 11. The aortic pressure was 119/90 with a mean pressure of 104. There was no gradient upon pullback from left ventricle to aorta. Left ventricle revealed a symmetrically sharonda ventricle with hypokinesis of the anterior wall. Estimated ejection fraction of 35%. ANGIOGRAPHY 1. Right coronary artery is a dominant vessel giving off the PDA, has nonobstructive coronary artery disease. 2. The left main is giving off the LAD which is completely occluded, a small ramus vessel and left circumflex artery. 3. The LAD is 100% occluded. 4. The left circumflex artery is a big vessel. It measured at least 4 0 mm and is giving off two OM branches which are patent with PJ III flow and nonobstructive coronary artery disease. 5. There is a small ramus vessel, less than 1 mm of size with nonobstructive coronary artery disease. CONCLUSION 1. Successful PCI/ELLIS to LAD in the setting of a [id number] HI. 2. Successful Rheolytic Thrombectomy to LCx 2. Reduced LV systolic function. RECOMMENDATIONS The patient will go back to [facility] for post cath care. He will continue on IV fluids 125 ccs an hour for the next 6 hours. He will be started on Aggrastat drip. He will continue dual antiplatelet agent with aspirin and Plavix and aggressive medical management for secondary prevention of CAD with beta-blockers , statins, TONY inhibitors and long-acting nitrates. The patient should get a 2- D Echo before discharge and referred to cardiac rehab. MD SHWETHA Arizmendi/EUFEMIA /3:03 PM /3:14 PM BLAIRE
[2017-09-02] MEDS ORDERED: IOHEXOL 350 MG/ML 50 ML BTL (for Cath Lab) OTHER ONE (16:25)
[2017-09-02] MEDS ORDERED: IOHEXOL 350 MG/ML 100 ML BTL (for Cath Lab) OTHER ONE (16:25)
[2017-09-02] MEDS: TIROFIBAN INFUSION INJ 250 ML IV SCH ×2 (16:52→22:42)
[2017-09-02] MEDS ORDERED: TIROFIBAN BOLUS IV ONE (16:55)
[2017-09-02] MEDS: ACETAMINOPHEN/HYDROcodone 325 MG/7.5 MG TAB PO PRN (17:12)
[2017-09-02 20:34] LABS: AUTOMATED NEUTROPHIL # 10.7 TH/MM3 (1.8-7.7); BASOPHIL % 0.2 % (0.0-2.0); EOSINOPHIL % 0.2 % (0.0-4.0); HEMATOCRIT 44.2 % (39.0-51.0); HEMO FLAGS DIFF FINAL; LYMPH % 16.8 % (9.0-44.0); LYMPHOCYTE # 2.5 TH/MM3 (1.0-4.8); MEAN CELL VOLUME 85.8 FL (80.0-100.0); MEAN CORPUSCULAR HEMOGLOBIN 29.3 PG (27.0-34.0); MEAN CORPUSCULAR HGB CONC 34.2 % (32.0-36.0); MONO % 11.6 % (0.0-8.0); NEUT % 71.2 % (16.0-70.0); PLATELET COUNT 303 TH/MM3 (150-450); RED BLOOD COUNT 5.16 MIL/MM3 (4.50-5.90); RED CELL DISTRIBUTION WIDTH 12.6 % (11.6-17.2); WHITE BLOOD COUNT 15.1 TH/MM3 (4.0-11.0)
[2017-09-02] MEDS ORDERED: SODIUM CHLORIDE 0.9% FLUSH 10 ML FLUSH IV FLUSH SCH (21:00)
[2017-09-03] VITALS (25 sets, daily range): BP systolic 91–108; BP diastolic 56–71; PULSE 76–112; RESP 16–18; TEMP 98.3–99.4; O2SAT 92–95
[2017-09-03 00:45] LABS: CREATINE KINASE 3958 U/L (39-308)
[2017-09-03 01:01] LABS: CKMB 228.9 NG/ML (0.5-3.6)
[2017-09-03] MEDS: SODIUM CHLOR 0.9% 1000 ML INJ 1,000 ML IV SCH ×3 (06:00→20:24)
[2017-09-03 06:18] LABS: APTT (PATIENT) 27.8 SEC (24.3-30.1)
[2017-09-03 06:23] LABS: AUTOMATED NEUTROPHIL # 10.3 TH/MM3 (1.8-7.7); BASOPHIL % 0.3 % (0.0-2.0); EOSINOPHIL % 0.2 % (0.0-4.0); HEMATOCRIT 47.3 % (39.0-51.0); HEMO FLAGS DIFF FINAL; LYMPH % 15.9 % (9.0-44.0); LYMPHOCYTE # 2.2 TH/MM3 (1.0-4.8); MEAN CELL VOLUME 86.5 FL (80.0-100.0); MEAN CORPUSCULAR HEMOGLOBIN 29.5 PG (27.0-34.0); MEAN CORPUSCULAR HGB CONC 34.2 % (32.0-36.0); MONO % 10.9 % (0.0-8.0); NEUT % 72.7 % (16.0-70.0); PLATELET COUNT 317 TH/MM3 (150-450); RED BLOOD COUNT 5.48 MIL/MM3 (4.50-5.90); RED CELL DISTRIBUTION WIDTH 12.9 % (11.6-17.2); WHITE BLOOD COUNT 14.1 TH/MM3 (4.0-11.0)
[2017-09-03 06:40] LABS: BICARBONATE 25.2 MEQ/L (21.0-32.0); POTASSIUM 3.4 MEQ/L (3.5-5.1)
[2017-09-03] MEDS: TICAGRELOR 90 MG TAB PO SCH ×2 (08:38→21:07)
[2017-09-03] MEDS: ALLOPURINOL 300 MG TAB PO SCH (08:38)
[2017-09-03] MEDS: SODIUM CHLORIDE 0.9% FLUSH 10 ML FLUSH IV FLUSH SCH ×2 (08:39→21:07)
[2017-09-03] MEDS: NICOTINE 14 MG/24 HR PATCH T-DERMAL SCH (08:39)
[2017-09-03] MEDS: ASPIRIN 81 MG CHEW TAB PO SCH (08:39)
--- NOTE | 2017-09-03 08:43 | PD.CARD.PN ---
Subjective Subjective Remarks no CV complaints no overnight events tachycardic s/p LAD PCI/ELLIS Objective Medications Current Medications Medications (Trade) Dose Ordered Sig/Reagan Route Start Time Stop Time Status Last Admin (NS Flush) 2 ml BID IV FLUSH 09/02/17 09:00 09/03/17 08:39 (NS Flush) 2 ml UNSCH PRN IV FLUSH 09/01/17 21:45 (Tylenol) 500 mg Q4H PRN PO 09/01/17 21:45 (Zyloprim) 300 mg DAILY PO 09/02/17 09:00 09/03/17 08:38 (Morphine Inj) 4 mg Q3H PRN IV PUSH 09/02/17 00:00 09/02/17 04:47 Sodium Chloride 1,000 ml @ 100 mls/hr Q10H IV 09/02/17 00:00 09/02/17 00:00 Nitroglycerin/ Dextrose 250 ml @ 1.5 mls/hr TITRATE PRN IV 09/01/17 23:45 09/02/17 01:18 ([place] 7.5-325 Mg) 1 tab Q4H PRN PO 09/02/17 12:30 09/02/17 17:12 ([place] 5-325 Mg) 1 tab Q4H PRN PO 09/02/17 12:30 (Aspirin Chew) 81 mg DAILY PO 09/03/17 09:00 09/03/17 08:39 (Brilinta) 90 mg BID PO 09/03/17 09:00 09/03/17 08:38 Tirofiban/Sodium Chloride 250 ml @ 24.03 mls/ hr [id number] IV 09/02/17 17:00 09/02/17 22:42 (Lopressor) 25 mg BID PO 09/03/17 09:00 09/03/17 08:38 (Habitrol 14 Mg Patch.24 Hr) 1 patch DAILY T-DERMAL 09/03/17 09:00 Miscellaneous Information 1 HS T-DERMAL 09/03/17 21:00 Vital Signs / I&O Vital Signs Date Time Temp Pulse Resp B/P (MAP) Pulse Ox O2 Delivery O2 Flow Rate FiO2 09/03/17 08:00 94 Room Air 09/03/17 08:00 98.6 108 16 100/57 (71) 94 09/03/17 06:00 109 09/03/17 05:00 110 09/03/17 04:00 105 09/03/17 03:00 99.4 112 18 108/71 (83) 92 09/03/17 03:00 106 09/03/17 02:00 104 09/03/17 01:00 91 09/03/17 00:00 106 09/02/17 23:00 109 09/02/17 23:00 99.9 109 18 131/89 (103) 95 09/02/17 22:00 98 09/02/17 21:00 88 09/02/17 20:00 86 09/02/17 20:00 99.6 99 18 135/74 (94) 96 09/02/17 20:00 96 Room Air 09/02/17 19:00 94 09/02/17 18:00 96 09/02/17 17:00 89 09/02/17 16:00 87 09/02/17 15:00 74 09/02/17 15:00 97.4 78 16 158/101 (120) 98 09/02/17 13:50 80 117/80 09/02/17 12:00 78 09/02/17 11:00 98.3 76 18 129/82 (98) 96 I/O 09/02/17 09/02/17 09/02/17 09/03/17 09/03/17 09/03/17 06:59 14:59 22:59 06:59 14:59 22:59 Intake Total 960 ml 0 ml 394 ml 475 ml Output Total 500 ml 1200 ml 3175 ml Balance 460 ml 0 ml -806 ml -2700 ml Intake Oral 480 ml 0 ml 240 ml IV Total 480 ml 394 ml 235 ml Output Urine Total 500 ml 1200 ml 3175 ml # Bowel Movements 0 0 Physical Exam GENERAL: Well-nourished, well-developed patient. SKIN: Warm and dry. HEAD: Normocephalic. EYES: No scleral icterus. No injection or drainage. NECK: Supple, trachea midline. No JVD or lymphadenopathy. CARDIOVASCULAR: Regular rate and rhythm without murmurs, gallops, or rubs. RESPIRATORY: Breath sounds equal bilaterally. No accessory muscle use. GASTROINTESTINAL: Abdomen soft, non-tender, nondistended. EXTREMITIES: No cyanosis, or edema. NEUROLOGICAL: Awake, alert, and oriented x 3. Non-focal. Laboratory Laboratory Tests Test 09/02/17 20:09 09/03/17 04:31 White Blood Count 15.1 TH/MM3 14.1 TH/MM3 Red Blood Count 5.16 MIL/MM3 5.48 MIL/MM3 Hemoglobin 15.1 GM/DL 16.2 GM/DL Hematocrit 44.2 % 47.3 % Mean Corpuscular Volume 85.8 FL 86.5 FL Mean Corpuscular Hemoglobin 29.3 PG 29.5 PG Mean Corpuscular Hemoglobin Concent 34.2 % 34.2 % Red Cell Distribution Width 12.6 % 12.9 % Platelet Count 303 TH/MM3 317 TH/MM3 Mean Platelet Volume 8.0 FL 8.2 FL Neutrophils (%) (Auto) 71.2 % 72.7 % Lymphocytes (%) (Auto) 16.8 % 15.9 % Monocytes (%) (Auto) 11.6 % 10.9 % Eosinophils (%) (Auto) 0.2 % 0.2 % Basophils (%) (Auto) 0.2 % 0.3 % Neutrophils # (Auto) 10.7 TH/MM3 10.3 TH/MM3 Lymphocytes # (Auto) 2.5 TH/MM3 2.2 TH/MM3 Monocytes # (Auto) 1.8 TH/MM3 1.5 TH/MM3 Eosinophils # (Auto) 0.0 TH/MM3 0.0 TH/MM3 Basophils # (Auto) 0.0 TH/MM3 0.0 TH/MM3 CBC Comment DIFF FINAL DIFF FINAL Differential Comment Creatinine 1.14 MG/DL 0.93 MG/DL Estimat Glomerular Filtration Rate 73 ML/MIN 92 ML/MIN Total Creatine Kinase 3958 U/L Creatine Kinase MB 228.9 NG/ML Creatine Kinase MB % 5.8 % Troponin I GREATER THAN 40.00 NG/ML Activated Partial Thromboplast Time 27.8 SEC Blood Urea Nitrogen 10 MG/DL Random Glucose 123 MG/DL Calcium Level 9.1 MG/DL Sodium Level 137 MEQ/L Potassium Level 3.4 MEQ/L Chloride Level 101 MEQ/L Carbon Dioxide Level 25.2 MEQ/L Anion Gap 11 MEQ/L Assessment and Plan Problem List: (1) Elevated troponin ICD Codes: R74.8 - Abnormal levels of other serum enzymes Status: Acute Plan: NSTEMI s/p PCI/ELLIS to LAD Low BP asymptomatic Tachy overnight Plan: 1. DAPT with ASA and Brilinta 2. Start Lipitor 80mg PO daily 3. 2Decho to assess LV function 4. IV fluids 500cc Bolus 5. ACEi on hold given low BP 6. Cardiac rehab 7. Nicotine patch, Smoking cessation 8. d/c Aggrastat (2) Nonspecific chest pain ICD Codes: R07.9 - Chest pain, unspecified Status: Acute (3) Tobacco use disorder ICD Codes: F17.200 - Tobacco use disorder Status: Acute (4) Gout flare ICD Codes: M10.9 - Gout flare Status: Acute Casey Palma MD Sep 03, 2017 08:43
[2017-09-03] MEDS ORDERED: METOPROLOL TARTRATE 25 MG TAB PO SCH (09:00)
[2017-09-03] MEDS ORDERED: SODIUM CHLORID 0.9% 500 ML INJ 500 ML IV ONE (09:15)
[2017-09-03] MEDS: ATORVASTATIN 80 MG TAB PO SCH (09:32)
--- NOTE | 2017-09-03 11:55 | HHI.PR ---
Subjective Remarks Pt feels a lot better. No chest pain, SOB, nausea or vomiting. doesn't have insurance or PCP. Pt was counseled on quitting smoking extensively. no complaints of back pain Objective Vitals Vital Signs Date Time Temp Pulse Resp B/P (MAP) Pulse Ox O2 Delivery O2 Flow Rate FiO2 09/03/17 11:13 98.3 87 16 91/56 (68) 94 09/03/17 10:00 99 09/03/17 09:00 109 09/03/17 08:00 108 09/03/17 08:00 94 Room Air 09/03/17 08:00 98.6 108 16 100/57 (71) 94 09/03/17 07:00 108 09/03/17 06:00 109 09/03/17 05:00 110 09/03/17 04:00 105 09/03/17 03:00 99.4 112 18 108/71 (83) 92 09/03/17 03:00 106 09/03/17 02:00 104 09/03/17 01:00 91 09/03/17 00:00 106 09/02/17 23:00 109 09/02/17 23:00 99.9 109 18 131/89 (103) 95 09/02/17 22:00 98 09/02/17 21:00 88 09/02/17 20:00 86 09/02/17 20:00 99.6 99 18 135/74 (94) 96 09/02/17 20:00 96 Room Air 09/02/17 19:00 94 09/02/17 18:00 96 09/02/17 17:00 89 09/02/17 16:00 87 09/02/17 15:00 74 09/02/17 15:00 97.4 78 16 158/101 (120) 98 09/02/17 13:50 80 117/80 09/02/17 12:00 78 I/O 09/02/17 09/02/17 09/02/17 09/03/17 09/03/17 09/03/17 07:00 15:00 23:00 07:00 15:00 23:00 Intake Total 960 ml 394 ml 475 ml 490 ml Output Total 500 ml 1200 ml 3175 ml Balance 460 ml -806 ml -2700 ml 490 ml Intake Oral 480 ml 240 ml IV Total 480 ml 394 ml 235 ml 490 ml Output Urine Total 500 ml 1200 ml 3175 ml # Bowel Movements 0 0 Result Diagram: 09/03/1743009/03/17430 Objective Remarks GENERAL: Obese male lying in bed, 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 ENT: Nose without drainage. Airway patent. NECK: Trachea midline. CARDIOVASCULAR: Regular rate and rhythm without murmurs RESPIRATORY: Clear to auscultation. Breath sounds equal bilaterally. No wheezes GASTROINTESTINAL: Abdomen soft, non-tender, nondistended. No guarding. MUSCULOSKELETAL: moves all extremities. A/P Assessment and Plan 37-year-old male with a past medical history significant only for gout presents with a 1 day history of substernal chest pain and elevated troponins. 1. NSTEMI EKG without ST segment elevations or depressions, personally reviewed by me Elevated troponins of 0.14, 0.55, 9.04 s/p Heparin drip/Nitro drip Cardiology following, Dr Olmos. s/p cardiac cath w PCI/ELLIS to LAD. on ASA/ Brinlinta/metoprolol/lipitor. CM consult for assistance w d/c planning ECHO pending Tachycardia/low normal hypotensive: resolved s/p 1L NS bolus, controlled on metoprolol. monitor. 3. Gout Continue allopurinol 4. Back pain CT thoracic and lumbar from [facility] visit reviewed. norco and morphine prn. PT eval seems to have resolved. Discharge Planning Monitor HR and BPs awaiting clearance from cards. Pt counseled on smoking cessation. Pt informed on importance of adherence to meds and f/u w cards/PCP as an outpatient Xiao Liu MD Sep 03, 2017 11:55
[2017-09-03] MEDS: CARVEDILOL 3.125 MG TAB PO SCH ×2 (15:26→21:07)
[2017-09-03] MEDS: DIGOXIN 0.125 MG TAB PO SCH (15:26)
--- NOTE | 2017-09-03 18:55 | ECHRPT ---
Indication: Chest pain, unspecified CONCLUSIONS The left ventricular systolic function is severely reduced with an estimated ejection fraction in th e range of 20-25%. Extensive akinesis anterior wall and apex. The pulmonary valve is not well visualized. The inferior vena cava was not well visualized. BP: 108 / 71 HR: 106 Rhythm: Sinus MEASUREMENTS (Male / Female) Normal Values Technical Quality:Fair 2D ECHO LV Diastolic Diameter PLAX 5.5 cm 4.2 - 5.9 / 3.9 - 5.3 cm LV Systolic Diameter PLAX 4.3 cm IVS Diastolic Thickness 1.1 cm 0.6 - 1.0 / 0.6 - 0.9 cm LVPW Diastolic Thickness 1.1 cm 0.6 - 1.0 / 0.6 - 0.9 cm LV Relative Wall Thickness 0.4 LVOT Diameter 2.0 cm M-MODE Aortic Root Diameter MM 3.4 cm LA Systolic Diameter MM 3.4 cm LA Ao Ratio MM 1.0 AV Cusp Separation MM 2.3 cm DOPPLER AV Peak Velocity 87.3 cm/s AV Peak Gradient 3.0 mmHg LVOT Peak Velocity 79.5 cm/s LVOT Peak Gradient 2.5 mmHg AV Area Cont Eq pk 2.9 cm Mitral E Point Velocity 47.9 cm/s Mitral A Point Velocity 32.6 cm/s Mitral E to A Ratio 1.5 LV E' Lateral Velocity 8.2 cm/s Mitral E to LV E' Lateral Ratio 5.8 LV E' Septal Velocity 9.0 cm/s Mitral E to LV E' Septal Ratio 5.3 PV Peak Velocity 76.0 cm/s PV Peak Gradient 2.3 mmHg FINDINGS LEFT VENTRICLE The left ventricular systolic function is severely reduced with an estimated ejection fraction in th e range of 20-25%. Extensive akinesis anterior wall and apex. RIGHT VENTRICLE Normal right ventricular size and systolic function. LEFT ATRIUM The left atrial size is normal. RIGHT ATRIUM The right atrial size is normal. ATRIAL SEPTUM Normal atrial septal thickness without atrial level shunting by limited color doppler interrogation. AORTA The aortic root and proximal ascending aorta are normal in size on limited imaging. MITRAL VALVE Structurally normal mitral valve. No mitral valve stenosis or regurgitation. AORTIC VALVE Trileaflet aortic valve. No aortic valve stenosis or regurgitation. TRICUSPID VALVE Structurally normal tricuspid valve. No tricuspid valve stenosis or regurgitation. PULMONARY VALVE The pulmonary valve is not well visualized. VESSELS The inferior vena cava was not well visualized. PERICARDIUM No pericardial effusion. Chaz Tyler MD (Electronically Signed) Final Date:03 September 2017 18:54
[2017-09-03] MEDS: REMOVE OLD NICODERM (NICOTINE) PATCH T-DERMAL SCH (20:24)
[2017-09-04] VITALS (24 sets, daily range): BP systolic 95–123; BP diastolic 54–72; PULSE 72–96; RESP 16–18; TEMP 97.7–98.7; O2SAT 95–98
[2017-09-04] MEDS: CARVEDILOL 3.125 MG TAB PO SCH ×2 (09:42→20:21)
[2017-09-04] MEDS: ASPIRIN 81 MG CHEW TAB PO SCH (09:42)
[2017-09-04] MEDS: SODIUM CHLORIDE 0.9% FLUSH 10 ML FLUSH IV FLUSH SCH ×2 (09:42→20:35)
[2017-09-04] MEDS: DIGOXIN 0.125 MG TAB PO SCH (09:42)
[2017-09-04] MEDS: ATORVASTATIN 80 MG TAB PO SCH (09:43)
[2017-09-04] MEDS: ALLOPURINOL 300 MG TAB PO SCH (09:43)
[2017-09-04] MEDS: TICAGRELOR 90 MG TAB PO SCH (09:46)
[2017-09-04] MEDS: NICOTINE 14 MG/24 HR PATCH T-DERMAL SCH (09:50)
--- NOTE | 2017-09-04 10:13 | PD.CARD.PN ---
Subjective Subjective Remarks no CV complaints no overnight events s/p LAD PCI/ELLIS Objective Medications Current Medications Medications (Trade) Dose Ordered Sig/Reagan Route Start Time Stop Time Status Last Admin (NS Flush) 2 ml BID IV FLUSH 09/02/17 09:00 09/04/17 09:42 (NS Flush) 2 ml UNSCH PRN IV FLUSH 09/01/17 21:45 (Tylenol) 500 mg Q4H PRN PO 09/01/17 21:45 (Zyloprim) 300 mg DAILY PO 09/02/17 09:00 09/04/17 09:43 (Morphine Inj) 4 mg Q3H PRN IV PUSH 09/02/17 00:00 09/02/17 04:47 Sodium Chloride 1,000 ml @ 100 mls/hr Q10H IV 09/02/17 00:00 09/02/17 00:00 Nitroglycerin/ Dextrose 250 ml @ 1.5 mls/hr TITRATE PRN IV 09/01/17 23:45 09/02/17 01:18 ([place] 7.5-325 Mg) 1 tab Q4H PRN PO 09/02/17 12:30 09/02/17 17:12 ([place] 5-325 Mg) 1 tab Q4H PRN PO 09/02/17 12:30 (Aspirin Chew) 81 mg DAILY PO 09/03/17 09:00 09/04/17 09:42 (Brilinta) 90 mg BID PO 09/03/17 09:00 09/04/17 09:46 (Habitrol 14 Mg Patch.24 Hr) 1 patch DAILY T-DERMAL 09/03/17 09:00 09/04/17 09:50 Miscellaneous Information 1 HS T-DERMAL 09/03/17 21:00 (Lipitor) 80 mg DAILY PO 09/03/17 09:00 09/04/17 09:43 (Coreg) 3.125 mg Q12HR PO 09/03/17 14:45 09/04/17 09:42 (Lanoxin) 0.125 mg DAILY PO 09/03/17 14:45 09/04/17 09:42 Vital Signs / I&O Vital Signs Date Time Temp Pulse Resp B/P (MAP) Pulse Ox O2 Delivery O2 Flow Rate FiO2 09/04/17 05:00 96 09/04/17 04:00 98.7 88 16 102/56 (71) 98 09/04/17 04:00 75 09/04/17 03:00 76 09/04/17 01:00 78 09/03/17 23:00 76 09/03/17 23:00 98.7 81 16 97/57 (70) 92 09/03/17 22:00 77 09/03/17 20:00 100 09/03/17 19:00 99.1 99 16 102/68 (79) 95 09/03/17 19:00 95 Room Air 09/03/17 19:00 99 09/03/17 18:07 93 09/03/17 17:00 104 09/03/17 16:09 89 09/03/17 15:15 98.5 93 16 98/67 (77) 94 09/03/17 15:02 98 09/03/17 14:07 95 09/03/17 13:15 96 09/03/17 12:00 110 09/03/17 11:13 98.3 87 16 91/56 (68) 94 09/03/17 11:00 89 I/O 09/03/17 09/03/17 09/03/17 09/04/17 09/04/17 09/04/17 07:00 15:00 23:00 07:00 15:00 23:00 Intake Total 475 ml 490 ml 620 ml 600 ml Output Total 3175 ml 325 ml Balance -2700 ml 490 ml 295 ml 600 ml Intake Oral 240 ml 620 ml 600 ml IV Total 235 ml 490 ml Output Urine Total 3175 ml 325 ml # Voids 2 2 # Bowel Movements 0 0 1 Physical Exam GENERAL: Well-nourished, well-developed patient. SKIN: Warm and dry. HEAD: Normocephalic. EYES: No scleral icterus. No injection or drainage. NECK: Supple, trachea midline. No JVD or lymphadenopathy. CARDIOVASCULAR: Regular rate and rhythm without murmurs, gallops, or rubs. RESPIRATORY: Breath sounds equal bilaterally. No accessory muscle use. GASTROINTESTINAL: Abdomen soft, non-tender, nondistended. EXTREMITIES: No cyanosis, or edema. NEUROLOGICAL: Awake, alert, and oriented x 3. Non-focal. Assessment and Plan Problem List: (1) Elevated troponin ICD Codes: R74.8 - Abnormal levels of other serum enzymes Status: Acute Plan: NSTEMI s/p PCI/ELLIS to LAD ECHO- Severe LV systolic dysfunction Plan: 1. DAPT with ASA and Brilinta 2. Lipitor 80mg PO daily 3. Cardiac rehab 4. Nicotine patch, Smoking cessation 5. Start Altace 1.25mg PO daily 6. LifeVest Upon discharge 7. CM consult (No health insurance, Medications Prescriptions) 8. PRN Lasix PO for SOB Follow up with Cardiology upon discharge Stable from CV standpoint to d/c home today (2) Nonspecific chest pain ICD Codes: R07.9 - Chest pain, unspecified Status: Acute (3) Tobacco use disorder ICD Codes: F17.200 - Tobacco use disorder Status: Acute (4) Gout flare ICD Codes: M10.9 - Gout flare Status: Acute Nickolas-Casey Leroy MD Sep 04, 2017 10:13
[2017-09-04] MEDS ORDERED: DEFIB EXTERNAL (11:59)
[2017-09-04] MEDS ORDERED: PLAV75TA29 PO (12:04)
[2017-09-04] MEDS ORDERED: ASPI81CH25 PO (12:04)
[2017-09-04] MEDS ORDERED: ALTA1.256 PO (12:04)
[2017-09-04] MEDS ORDERED: ATOR80TA45 PO (12:04)
[2017-09-04] MEDS ORDERED: DIGO0.12 PO (12:04)
[2017-09-04] MEDS ORDERED: CARV3.125 PO (12:04)
[2017-09-04] MEDS ORDERED: CLOPIDOGREL 300 MG TAB PO ONE (12:15)
--- NOTE | 2017-09-04 12:21 | HHI.DS ---
Discharge Summary Admission Date Sep 01, 2017 at 22:53 Discharge Date: Sep 04, 2017 Admitting Diagnosis (1) CHF (congestive heart failure), NYHA class IV ICD Code: I50.9 - Heart failure, unspecified (2) NSTEMI (non-ST elevated myocardial infarction) ICD Code: I21.4 - Non-ST elevation (NSTEMI) myocardial infarction (3) Tobacco use disorder ICD Code: F17.200 - Tobacco use disorder Status: Acute Procedures cardiac cath Brief History - From Admission 37-year-old male presents to the emergency department with acute onset chest pain. The patient was seen in the [facility] emergency department yesterday for back pain for which she was given a Medrol Dosepak and [place]. He states that he went home and was lying down when the pain radiated from his back to his chest. He states the chest pain has remained persistent since yesterday and it feels like a crushing/stabbing pain in his mid sternum that radiates down both arms. The patient endorses previous shortness of breath, now resolved. Chest pain was not relieved by morphine in the emergency department. The patient has no cardiac history and has never had chest pain before. Patient's initial troponin was 0.14, repeat 0.55. CBC/BMP: 09/03/17 0431 09/03/17 0431 Significant Findings Laboratory Tests Test 09/02/17 02:17 09/02/17 04:16 09/02/17 05:50 09/02/17 20:09 Total Creatine Kinase 901 U/L (39-308) 3958 U/L (39-308) Creatine Kinase MB 110.3 NG/ML (0.5-3.6) 228.9 NG/ML (0.5-3.6) Creatine Kinase MB % 12.2 % (0.0-4.0) 5.8 % (0.0-4.0) Troponin I 9.04 NG/ML (0.02-0.05) GREATER THAN 40.00 NG/ML Urine Opiates Screen POS (NEG) White Blood Count 15.1 TH/MM3 (4.0-11.0) Neutrophils (%) (Auto) 71.2 % (16.0-70.0) Monocytes (%) (Auto) 11.6 % (0.0-8.0) Neutrophils # (Auto) 10.7 TH/MM3 (1.8-7.7) Monocytes # (Auto) 1.8 TH/MM3 (0-0.9) Estimat Glomerular Filtration Rate 73 ML/MIN (>89) Test 09/03/17 04:31 White Blood Count 14.1 TH/MM3 (4.0-11.0) Neutrophils (%) (Auto) 72.7 % (16.0-70.0) Monocytes (%) (Auto) 10.9 % (0.0-8.0) Neutrophils # (Auto) 10.3 TH/MM3 (1.8-7.7) Monocytes # (Auto) 1.5 TH/MM3 (0-0.9) Random Glucose 123 MG/DL (74-106) Potassium Level 3.4 MEQ/L (3.5-5.1) PE at Discharge GENERAL: Obese male lying in bed, 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 ENT: Nose without drainage. Airway patent. NECK: Trachea midline. CARDIOVASCULAR: Regular rate and rhythm without murmurs RESPIRATORY: Clear to auscultation. Breath sounds equal bilaterally. No wheezes GASTROINTESTINAL: Abdomen soft, non-tender, nondistended. No guarding. MUSCULOSKELETAL: moves all extremities. Pt update on day of discharge Pt feeling well. Eager to be discharged. Concerned about lifevest. Eager to go back to work. no CP/SOB/N/V Hospital Course 1. NSTEMI EKG without ST segment elevations or depressions, personally reviewed by me Elevated troponins of 0.14, 0.55, 9.04 s/p Heparin drip/Nitro drip Cardiology following, Dr Olmos. s/p cardiac cath w PCI/ELLIS to LAD. on ASA/ Brinlinta/metoprolol/lipitor. Brinlinta too expensive therefore will switch him to plavix. Per Dr. Olmos, give plavix 600mg po x 1 and d/c brilinta. He will be discharged on plavix 75mg po daily. Pt will require lifevest, which I have ordered. CM assisting w d/c planning ECHO shows EF 20-25% PRN lasix per cards Pt has been extensively counseled on smoking cessation. Tachycardia/low normal hypotensive: resolved s/p 1L NS bolus, controlled on metoprolol. resolved. Pt Condition on Discharge: Stable Discharge Disposition: Discharge Home Discharge Time: > 30 minutes Discharge Instructions Follow up Referrals: Cardiology - 1 Week PCP Follow-up - 1 Week New Medications: Clopidogrel (Plavix) 75 Mg Tab 75 MG PO DAILY for Blood Clot Prevention, #30 TAB 0 Refills Defibrillator Jacket (Defibrillator Jacket) 1 Ea Device EA EXTERNAL ONCE, #1 Energy = 150 Joules; VT Threshold = 150 BPM; VF Threshold = 200 BPM Use up to 90 days only Furosemide (Lasix) 40 Mg Tab 40 MG PO DAILY PRN for sob/swelling, #30 TAB 0 Refills Aspirin (Aspirin Low Strength) 81 Mg Chew 81 MG PO DAILY, #30 EA Atorvastatin (Atorvastatin) 80 Mg Tab 80 MG PO DAILY, #30 TAB Carvedilol (Coreg) 3.125 Mg Tab 3.125 MG PO Q12HR, #60 TAB Digoxin (Digoxin) 0.125 Mg Tab 0.125 MG PO DAILY, #30 TAB Ramipril (Altace) 1.25 Mg Cap 1.25 MG PO DAILY, #30 CAP Continued Medications: Allopurinol (Allopurinol) 300 Mg Tab 300 MG PO DAILY for Gout, #30 TAB 0 Refills Hydrocodone-Acetaminophen ([place]) 5-325 mg Tab 1 TAB PO Q6H PRN for PAIN, #20 TAB 0 Refills Methylprednisolone Dosepak (Medrol Dosepak) 4 Mg Dspk 4 MG PO DIRECTED, #1 DSPK 0 Refills Per Pharmacist direction Xiao Liu MD Sep 04, 2017 12:21
[2017-09-04] MEDS ORDERED: FURO1TAB60 PO (12:22)
[2017-09-04] MEDS: REMOVE OLD NICODERM (NICOTINE) PATCH T-DERMAL SCH (20:36)
[2017-09-05] VITALS (12 sets, daily range): BP systolic 106–130; BP diastolic 59–78; PULSE 80–97; RESP 18; TEMP 98.3–98.7; O2SAT 96–97
[2017-09-05] MEDS: NICOTINE 14 MG/24 HR PATCH T-DERMAL SCH (08:25)
[2017-09-05] MEDS: ALLOPURINOL 300 MG TAB PO SCH (08:25)
[2017-09-05] MEDS: CARVEDILOL 3.125 MG TAB PO SCH (08:25)
[2017-09-05] MEDS: ATORVASTATIN 80 MG TAB PO SCH (08:25)
[2017-09-05] MEDS: DIGOXIN 0.125 MG TAB PO SCH (08:26)
[2017-09-05] MEDS: ASPIRIN 81 MG CHEW TAB PO SCH (08:26)
[2017-09-05] MEDS ORDERED: COLCHICINE 0.6 MG TAB PO ONE (08:45)
[2017-09-05] MEDS ORDERED: COLC1CAP3 PO (08:48)
--- NOTE | 2017-09-05 08:50 | HHI.PR ---
Subjective Remarks f/u NSTEMI, R toe pain no overnight events, no chest pain or SOB. However with increasing pain R toe, associated with swelling. Afebrile. He has history of gout. Objective Vitals Vital Signs Date Time Temp Pulse Resp B/P (MAP) Pulse Ox O2 Delivery O2 Flow Rate FiO2 09/05/17 06:00 86 09/05/17 05:00 86 09/05/17 04:20 98.3 86 18 106/59 (75) 96 09/05/17 04:00 88 09/05/17 02:00 86 09/05/17 01:00 86 09/05/17 00:00 82 09/04/17 23:05 98.1 82 18 95/54 (68) 96 09/04/17 23:00 79 09/04/17 22:00 90 09/04/17 21:32 98.1 95 18 123/72 (89) 96 09/04/17 21:29 96 Room Air 09/04/17 21:00 92 09/04/17 20:00 94 09/04/17 19:00 92 09/04/17 18:00 88 09/04/17 17:00 82 09/04/17 16:00 98.1 84 18 103/65 (78) 96 09/04/17 16:00 90 09/04/17 15:00 88 09/04/17 14:00 92 09/04/17 13:00 84 09/04/17 12:00 98.3 89 16 97/59 (72) 95 09/04/17 12:00 90 09/04/17 11:00 94 09/04/17 10:00 84 09/04/17 09:00 82 I/O 09/04/17 09/04/17 09/04/17 09/05/17 09/05/17 09/05/17 07:00 15:00 23:00 07:00 15:00 23:00 Intake Total 600 ml 720 ml Balance 600 ml 720 ml Intake Oral 600 ml 720 ml # Voids 2 2 4 # Bowel Movements 1 0 Result Diagram: 09/03/1743009/03/17430 Objective Remarks Not in distress, well-nourished, looks stated age Supple neck, no masses or thyromegaly, trachea midline Normal rate and regular rhythm, no murmurs gallops or rubs appreciated. Clear to auscultation and symmetric bilaterally, normal respiratory effort. Normal bowel sounds, soft, non-tender, nondistended, no guarding. No edema. Right great toe tender, mildly swollen, no erythema. AAO x3, no cranial nerve deficits, moves all 4 extremities, no focal neurologic deficits Procedures cardiac cath A/P Problem List: (1) CHF (congestive heart failure), NYHA class IV ICD Code: I50.9 - Heart failure, unspecified (2) NSTEMI (non-ST elevated myocardial infarction) ICD Code: I21.4 - Non-ST elevation (NSTEMI) myocardial infarction (3) Tobacco use disorder ICD Code: F17.200 - Tobacco use disorder Status: Acute Assessment and Plan 37-year-old male with a past medical history significant only for gout presents with a 1 day history of substernal chest pain and elevated troponins. 1. NSTEMI, ischemic cardiomyopathy EKG without ST segment elevations or depressions,Elevated troponins of 0.14, 0.55, 9.04 s/p Heparin drip/Nitro drip Cardiology following, Dr Olmos. s/p cardiac cath w PCI/ELLIS to LAD. on ASA/ [place]/metoprolol/lipitor. CM consult for assistance w d/c planning ECHO showed an ejection fraction of 20-25%. Blood pressure stable today, lowish but probably normal for his ejection fraction. Will need a LifeVest, discharged once LifeVest is in place. 3. Gout Continue allopurinol, not improving, NSAIDs and steroids relatively contraindicated. Start colchicine for now. Continue [place] 4. Back pain CT thoracic and lumbar from [place] ER visit reviewed. norco and morphine prn. PT eval seems to have resolved. Discharge Planning Cleared by cardiology, discharge once LifeVest is in place. Problem Qualifiers (1) CHF (congestive heart failure), NYHA class IV: Qualified Codes: I50.20 - Unspecified systolic (congestive) heart failure Valdo Martinez MD Sep 05, 2017 08:50
[2017-09-05] MEDS ORDERED: RAMIPRIL 1.25 MG CAP PO SCH (09:00)
[2017-09-05] MEDS: ACETAMINOPHEN/HYDROcodone 325 MG/7.5 MG TAB PO PRN (12:18)
[2017-09-06] MEDS ORDERED: COLCHICINE 0.6 MG TAB PO SCH (09:00)
== END 2017-09-05 18:09 | disposition home or self-care (01) | DRG 229 ==
LOC: NEDDLT 22:51 → HCIS 22:53
PROVIDERS: ADMIT Hospitalist; ATTEND Hospitalist
PROC: 02C00ZZ Extirpation of Matter from Coronary Artery, One Artery, Open Approach (ICD-10-PCS; principal; 2017-09-02)
PROC: 027036Z Dilation of Coronary Artery, One Artery with Three Drug-eluting Intraluminal Devices, Percutaneous Approach (ICD-10-PCS; 2017-09-02)
PROC: 4A023N7 Measurement of Cardiac Sampling and Pressure, Left Heart, Percutaneous Approach (ICD-10-PCS; 2017-09-02)
PROC: B2111ZZ Fluoroscopy of Multiple Coronary Arteries using Low Osmolar Contrast (ICD-10-PCS; 2017-09-02)
PROC: B2151ZZ Fluoroscopy of Left Heart using Low Osmolar Contrast (ICD-10-PCS; 2017-09-02)
DX: I21.4 Non-ST elevation (NSTEMI) myocardial infarction (principal); I50.9 Heart failure, unspecified; I95.9 Hypotension, unspecified; M10.9 Gout, unspecified; F17.210 Nicotine dependence, cigarettes, uncomplicated; Z80.0 Family history of malignant neoplasm of digestive organs; Z83.3 Family history of diabetes mellitus; M79.674 Pain in right toe(s); I25.5 Ischemic cardiomyopathy
CPT/HCPCS: 71010; 76937; 80048; 80307; 82550; 82552; 82565; 83735; 84484; 85002; 85025; 85379; 85610; 85730; 92928; 92973; 93005; 93306; 93458; 96374; 96375; 99152; 99153; C1725; C1757; C1769; C1874; C1887; C1893; J1644; J1885; J2060; J2250; J2270; J3010; J3246; J7030; J7040; Q9967